=== PATIENT | male | born 1990 | race Two or more races ===

== ENCOUNTER 2020-11-11 18:38 | Emergency (ER) | payer OTHER ==
[~2020-11-11] VITALS: Ht 188 cm; Wt 122.5 kg
[2020-11-11] MEDS ORDERED: PEPCID AC20 MG PO (22:44)
[2020-11-11] MEDS ORDERED: ACID REDUCER20 M1 PO (22:44)
== END 2020-11-11 23:13 | disposition home or self-care (01) ==
LOC: ER 18:38
DX: R07.89 Other chest pain (principal); K21.9 Gastro-esophageal reflux disease without esophagitis

== ENCOUNTER 2021-01-26 18:48 | Emergency (ER) | payer OTHER ==
[~2021-01-26] VITALS: Ht 188 cm; Wt 113.4 kg
[~2021-01-26 18:48] MED LIST: ACID REDUCER20 M1 PO; PEPCID AC20 MG PO
[2021-01-26] MEDS ORDERED: MONODOX100 MG PO (23:26)
== END 2021-01-26 23:31 | disposition home or self-care (01) ==
LOC: ER 18:48
DX: N50.811 Right testicular pain (principal)

== ENCOUNTER 2021-02-09 19:21 | Emergency (ER) | payer OTHER ==
[~2021-02-09] VITALS: Ht 182.9 cm; Wt 122.5 kg
[~2021-02-09 19:21] MED LIST changes: +MONODOX100 MG PO
[2021-02-09] MEDS ORDERED: PANADOL EXTRA500 MG (20:05)
== END 2021-02-09 23:34 | disposition home or self-care (01) ==
LOC: ER 19:21
DX: K40.90 Unilateral inguinal hernia, without obstruction or gangrene, not specified as recurrent (principal); N50.811 Right testicular pain

== ENCOUNTER 2021-03-03 05:50 | Day surgery (SDC) | payer OTHER ==
[~2021-03-03 05:50] MED LIST changes: +NASAL MIST126 ML; +OMEPRAZOLE MAGN20 MG PO; +PANADOL EXTRA500 MG
== END 2021-03-03 13:30 | disposition home or self-care (01) ==
LOC: CIR.AMB 05:50
PROVIDERS: ATTEND Surgery
DX: K40.30 Unilateral inguinal hernia, with obstruction, without gangrene, not specified as recurrent (principal); Z20.822 Contact with and (suspected) exposure to COVID-19

== ENCOUNTER 2023-03-01 09:59 | Emergency (ER) | payer OTHER ==
[~2023-03-01] VITALS: Ht 182.9 cm; Wt 117.9 kg
== END 2023-03-01 14:24 | disposition home or self-care (01) ==
LOC: ER 10:00
DX: M62.830 Muscle spasm of back (principal)

== ENCOUNTER 2023-03-09 13:08 | Outpatient (CLI) | payer OTHER ==
[2023-03-09 15:03] LABS: MYCOPLASMA PNEUMONIAE IGM NON REACTIVE (NO REACTIVE)
== END 2023-03-09 13:09 | disposition home or self-care (01) ==
LOC: LAB 13:08
PROVIDERS: ATTEND Internal Medicine
DX: R50.9 Fever, unspecified (principal); R05.9 Cough, unspecified

== ENCOUNTER 2023-03-31 05:33 | Day surgery (SDC) | payer OTHER ==
[2023-03-07 10:24] LABS: HEMATOCRIT 41.9 % (39.0-48.0); HEMOGLOBIN 14.3 g/dL (13-16.00); MEAN CELL VOLUME 84.9 fL (80.0-100.00); MEAN CORPUSCULAR HEMOGLOBIN 29.1 pg (27.00-32.0); MEAN CORPUSCULAR HGB CONC 34.3 g/dl (32.0-36.0); PLATELET COUNT 229 K/uL (150-450); RED BLOOD COUNT 4.93 M/uL (4.00-6.00); RED CELL DISTRIBUTION WIDTH 13.7 % (11.5-14.5)
[2023-03-07 10:49] LABS: CALCIUM 9.5 mg/dL (8.5-10.1); CREATININE SERUM 1.07 mg/dL (0.70-1.30); GFR 79.11; POTASSIUM 4.63 mEq/L (3.5-5.1)
[2023-03-07 10:51] LABS: INR 1.06; PARTIAL THROMBOPLASTIN TIME 30.7 SECONDS (22.0-34.0); PROTHROMBIN TIME 11.1 SECONDS (9.0-11.5)
[2023-03-07 11:00] LABS: URINE APPEARANCE Clear; URINE BILIRRUBIN Negative (NEGATIVE); URINE BLOOD Negative; URINE COLOR Yellow; URINE GLUCOSE Negative (NEGATIVE); URINE LEUKOCYTE Negative; URINE NITRATE Negative; URINE PROTEIN Negative (NEGATIVE); URINE UROBILINOGEN 0.2 E.U./dl
[2023-03-07 11:05] LABS: URINE WBC 1.9 uL (0.0-23.2)
[2023-03-07 11:12] LABS: URINE BACTERIA 1.2 uL (0.0-1933); URINE EPITHELIAL CELLS 0.3 uL (0.0-38.8)
[2023-03-31] MEDS ORDERED: KETO10TA2 PO (10:37)
[2023-03-31] MEDS ORDERED: TRAMADOL HCL50 MG PO (10:37)
[2023-03-31] MEDS ORDERED: MIRALAX17 GM PO (10:37)
[2023-03-31] MEDS ORDERED: TYLENOL ARTHRI650 MG PO (10:37)
== END 2023-03-31 13:50 | disposition home or self-care (01) ==
LOC: CIR.AMB 05:33
PROVIDERS: ATTEND Surgery
DX: K40.91 Unilateral inguinal hernia, without obstruction or gangrene, recurrent (principal); R10.9 Unspecified abdominal pain

== ENCOUNTER 2023-09-18 01:09 | Emergency (ER) | payer OTHER ==
[~2023-09-18] VITALS: Ht 182.9 cm; Wt 122.5 kg
[~2023-09-18 01:09] MED LIST changes: +KETO10TA2 PO; +MIRALAX17 GM PO; +TRAMADOL HCL50 MG PO; +TYLENOL ARTHRI650 MG PO
[2023-09-18] MEDS ORDERED: FAMOTIDINE/PF 20 MG in 0.9 % SODIUM CHLORIDE 8 ML IV PUSH STA (01:59)
[2023-09-18] MEDS ORDERED: KETOROLAC TROMETHAMINE 30 MG VIAL IV ONE (02:00)
[2023-09-18] MEDS ORDERED: FAMOtidine 200mg/20ml VIAL ONE (02:07)
[2023-09-18] MEDS ORDERED: KETOROLAC TROMETHAMINE 30 MG VIAL ONE (02:07)
[2023-09-18] MEDS ORDERED: PEPCID AC20 MG PO (03:22)
== END 2023-09-18 03:40 | disposition home or self-care (01) ==
LOC: ER 01:10
DX: R10.13 Epigastric pain (principal)

== ENCOUNTER 2024-10-22 05:12 | Emergency (ER) | payer OTHER ==
[~2024-10-22] VITALS: Ht 188 cm; Wt 117.9 kg
[2024-10-22] MEDS ORDERED: SUCRALFATE 1 G TABLET PO STA (06:43)
[2024-10-22] MEDS ORDERED: FAMOTIDINE/PF 20 MG/2 ML VIAL IV PUSH STA (06:43)
== END 2024-10-22 13:03 | disposition left against medical advice (07) ==
LOC: ER 05:15
DX: M79.602 Pain in left arm (principal); R12 Heartburn